=== PATIENT | male | born 1970 | race Caucasian/White ===

== ENCOUNTER 2023-10-04 14:40 | Outpatient (REF) | payer OTHER, SELFPAY ==
[2023-10-05 09:18] LABS: HBs Antibody, Quant <3.1 mIU/mL (See Note); Hepatitis B Surface Ab Negative (See Note)
[2023-10-05 10:01] LABS: HIV-1/2 Ag & Ab Screen Negative (Negative)
[2023-10-05 10:20] LABS: Hepatitis C Ab w Rflx HCV PCR Negative (Negative)
[2023-10-05 10:55] LABS: Syphilis Serology (RPR) Negative (Negative)
[2023-10-05 14:48] LABS: Chlamydia Result Negative (Negative); GC Result Negative (Negative)
[2023-10-06 11:42] LABS: HSV Type 1 Ab, IgG Negative (Negative); HSV Type 2 Ab, IgG Negative (Negative)
== END 2023-10-04 14:41 | disposition home or self-care (01) ==
LOC: NCHCN 14:40
PROVIDERS: PCP Nurse Practitioner Family; Visit Provider Family Medicine
DX: Z11.3 Encounter for screening for infections with a predominantly sexual mode of transmission (principal)
CPT/HCPCS: 86706; 86803; 87389; 87491; 87591; 86592; 86695; 86696